=== PATIENT | female | born 1990 | race Caucasian/White ===

== ENCOUNTER 2020-12-20 19:14 | Outpatient (CLI) | payer OTHER ==
[~2020-12-20 19:14] MED LIST: COLACE 100MG C100 MG PO; IBUPROFEN600 MG PO; MINOCYCLINE HC100 MG PO; NORCO 5-325 TA1 EACH PO
== END 2020-12-20 22:52 | disposition home or self-care (01) ==
LOC: GENOP 19:14
DX: O99.891 Other specified diseases and conditions complicating pregnancy (principal); R10.2 Pelvic and perineal pain; N89.8 Other specified noninflammatory disorders of vagina; Z3A.35 35 weeks gestation of pregnancy
CPT/HCPCS: 83518; 96360

== ENCOUNTER 2021-01-16 16:49 | Inpatient (IN) | payer OTHER ==
[2021-01-16 18:38] LABS: HEMOGLOBIN 14.4 gm/dl (12.3-15.3); RED BLOOD COUNT 4.14 M/UL (4.00-5.10); WHITE BLOOD COUNT 8.6 K/UL (4.5-11.0)
[2021-01-17] MEDS ORDERED: IBUPROFEN600 MG PO (02:55)
[2021-01-17] MEDS ORDERED: DOCUSATE SODIU250 MG PO (02:55)
[2021-01-17] MEDS ORDERED: FEROSUL325 MG PO (02:55)
[2021-01-18 04:46] LABS: HEMOGLOBIN 12.7 gm/dl (12.3-15.3)
== END 2021-01-18 15:01 | disposition home or self-care (01) | DRG 807 ==
LOC: GENOP 16:49 → OB 17:01
PROVIDERS: Obstetrics & Gynecology; ADMIT Obstetrics & Gynecology
PROC: 10E0XZZ Delivery of Products of Conception, External Approach (ICD-10-PCS; principal; 2021-01-17)
PROC: 10907ZC Drainage of Amniotic Fluid, Therapeutic from Products of Conception, Via Natural or Artificial Opening (ICD-10-PCS; 2021-01-17)
PROC: 4A1HXCZ Monitoring of Products of Conception, Cardiac Rate, External Approach (ICD-10-PCS; 2021-01-17)
DX: O99.62 Diseases of the digestive system complicating childbirth (principal); Z37.0 Single live birth; Z3A.39 39 weeks gestation of pregnancy; I34.1 Nonrheumatic mitral (valve) prolapse; K21.9 Gastro-esophageal reflux disease without esophagitis; K59.00 Constipation, unspecified; Z20.822 Contact with and (suspected) exposure to COVID-19; Z95.2 Presence of prosthetic heart valve
CPT/HCPCS: 36415; 51702; 81001; 85014; 85018; 85025; 90715; J7120; U0002

== ENCOUNTER → 2021-10-05 | Outpatient (CLI) | payer OTHER ==
[~2021-10-05] MED LIST changes: +DOCUSATE SODIU250 MG PO; +FEROSUL325 MG PO
== END ==
LOC: EMI 14:16
DX: G43.109 Migraine with aura, not intractable, without status migrainosus (principal)
CPT/HCPCS: 70551